=== PATIENT | male | born 2000 | race Hispanic/Latino ===

== ENCOUNTER 2024-09-09 11:24 | Emergency (ER) | payer OTHER ==
--- NOTE | 2024-09-09 12:43 | RAD REPORT ---
Procedure: Chest Single View HISTORY: Cough COMPARISON: none FINDINGS: The lungs appear clear of acute infiltrate. No significant pleural effusion noted. The heart is normal size. IMPRESSION: No acute abnormality is displayed.
--- NOTE | 2024-09-09 13:23 | ER ---
Nurse's Notes [facility] Name: William Samaniego Jr Age: 24 yrs Sex: Male : 2000 Arrival Date: 09/09/2024 Time: 11:24 Bed IW2 Private MD: Diagnosis: Contact with and (suspected) exposure to hazardous, chiefly nonmedicinal, chemicals Presentation: 09/09 11:39 Chief complaint: Patient states: Exposed to MMA at 0850 this AM. Eyes burning, SOB, ll1 dizzy, STAUFFER since. Coronavirus screen: Client denies travel out of the [place] in the last 14 days. At this time, the client does not indicate any symptoms associated with coronavirus-19. Ebola Screen: Patient denies travel to an Ebola-affected area in the 21 days before illness onset. Initial Sepsis Screen: Does the patient meet any 2 criteria? No. Patient's initial sepsis screen is negative. Does the patient have a suspected source of infection? No. Patient's initial sepsis screen is negative. Risk Assessment: Do you want to hurt yourself or someone else? Patient reports no desire to harm self or others. 11:39 Method Of Arrival: Ambulatory 1 11:39 Acuity: DEANDRE 3 ll1 11:50 Onset of symptoms was September 09, 2024. 1 Triage Assessment: 11:51 General: Appears in no apparent distress. Behavior is calm, cooperative, appropriate ll1 for age, Reports fatigue for. EENT: Reports eyes burning. Neuro: Reports dizziness, headache. Respiratory: Reports shortness of breath Onset: The symptoms/episode began/occurred today, the patient has mild shortness of breath. Historical: - Allergies: 11:49 No Known Allergies; ll1 - Home Meds: 11:49 None [Active]; ll1 - PMHx: 11:49 None; ll1 - PSHx: 11:49 R hand surgery; ll1 - Immunization history:: Adult Immunizations up to date. - Infectious Disease History:: Denies. - Social history:: Smoking status: Patient denies any tobacco usage or history of. - Family history:: not pertinent. Screenin:33 [facility] ED Fall Risk Assessment (Adult) History of falling in the last 3 months, ss including since admission No falls in past 3 months (0 pts) Confusion or Disorientation No (0 pts) Intoxicated or Sedated No (0 pts) Impaired Gait No (0 pts) Mobility Assist Device Used No (0 pt) Altered Elimination No (0 pt) Score/Fall Risk Level 0 - 2 = Low Risk Oriented to surroundings. Abuse screen: Denies threats or abuse. Denies injuries from another. Nutritional screening: No deficits noted. Tuberculosis screening: Never had TB. Assessment: 13:33 General: Appears in no apparent distress. comfortable, Behavior is calm, cooperative. ss Cardiovascular: Chest pain is denied. Respiratory: Airway is patent Respiratory effort is even, unlabored, Respiratory pattern is regular, symmetrical, Denies cough, shortness of breath. GI: Patient currently denies abdominal pain, diarrhea, nausea, vomiting. : No signs and/or symptoms were reported regarding the genitourinary system. EENT: Nares are clear. Derm: Skin is intact, is healthy with good turgor, Skin is pink, warm \T\ dry. normal. Vital Signs: 11:50 BP 164 / 105; Pulse 70; Resp 16; Temp 98.7; Pulse Ox 99% ; Pain 6/10; ll1 11:50 Pain Scale: Adult ll1 ED Course: 11:27 Patient arrived in ED. im 11:29 Buzz Quinn MD is Attending Physician. rt 11:39 Arm band placed on. ll1 11:40 Triage completed. ll1 12:41 Chest Single View XRAY In Process Unspecified. EDMS 13:33 Chela Jiménez RN is Primary Nurse. ss 13:33 Patient has correct armband on for positive identification. Bed in low position. ss 13:33 No provider procedures requiring assistance completed. Patient did not have IV access ss during this emergency room visit. Administered Medications: No medications were administered Medication: 13:33 VIS not applicable for this client. ss Outcome: 13:22 Discharge ordered by MD. rt 13:33 Discharged to home ambulatory, with family, ss 13:33 Condition: good 13:33 Discharge instructions given to patient, family, Instructed on discharge instructions, follow up and referral plans. Demonstrated understanding of instructions, follow-up care, 13:35 Patient left the ED. ss Signatures: Dispatcher [employer] [facility] Chela Jiménez RN RN ss Lewis, Lynsay, RN RN ll1 [place], Buzz, Elina Viveros MD Corrections: (The following items were deleted from the chart) 11:49 PSHx: None; ll1 ll1 1151 11:39 Chief complaint: Patient states: Exposed to MMA at 0850 this AM ll1 ll1
--- NOTE | 2024-09-09 13:23 | EDPHYS ---
Physician Documentation [facility] Name: William Samaniego Jr Age: 24 yrs Sex: Male : 2000 Arrival Date: 09/09/2024 Time: 11:24 Bed IW2 Private MD: ED Physician Buzz Quinn HPI: 09/09 13:24 This 24 yrs old Male presents to ER via Ambulatory with complaints of Chemical rt Exposure, Shortness Of Breath, Nose Problem - Burning sensation, Sore Throat. 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 Reports of burning to his nose, throat, headache. No acute complaints at this time, symptoms are moderate in severity, no other aggravating or alleviating factors.. Historical: - Allergies: 11:49 No Known Allergies; ll1 - Home Meds: 11:49 None [Active]; ll1 - PMHx: 11:49 None; ll1 - PSHx: 11:49 R hand surgery; ll1 - Immunization history:: Adult Immunizations up to date. - Infectious Disease History:: Denies. - Social history:: Smoking status: Patient denies any tobacco usage or history of. - Family history:: not pertinent. ROS: 13:24 Constitutional: Negative for fever, chills, and weight loss, Cardiovascular: Negative rt for chest pain, palpitations, and edema, MS/Extremity: Negative for injury and deformity, Skin: Negative for injury, rash, and discoloration, Neuro: Negative for headache, weakness, numbness, tingling, and seizure, 13:24 ENT: Positive for Burning sensation to nose, throat, 13:24 Respiratory: Positive for cough, Exam: 13:24 Constitutional: This is a well developed, well nourished patient who is awake, alert, rt and in no acute distress. Cardiovascular: Regular rate and rhythm with a normal S1 and S2. No gallops, murmurs, or rubs. Normal PMI, no JVD. No pulse deficits. Respiratory: Lungs have equal breath sounds bilaterally, clear to auscultation and percussion. No rales, rhonchi or wheezes noted. No increased work of breathing, no retractions or nasal flaring. Skin: Warm, dry with normal turgor. Normal color with no rashes, no lesions, and no evidence of cellulitis. MS/ Extremity: Pulses equal, no cyanosis. Neurovascular intact. Full, normal range of motion. Neuro: Awake and alert, GCS 15, oriented to person, place, time, and situation. Cranial nerves II-XII grossly intact. Motor strength 5/5 in all extremities. Sensory grossly intact. Cerebellar exam normal. Normal gait. 13:24 Eyes: No conjunctival injection. 13:24 ENT: No oropharyngeal erythema, swelling. Vital Signs: 11:50 BP 164 / 105; Pulse 70; Resp 16; Temp 98.7; Pulse Ox 99% ; Pain 6/10; ll1 11:50 Pain Scale: Adult ll1 MDM: 11:48 Medical Screening Exam initiated rt 13:24 Differential diagnosis: Inhalation injury. Data reviewed: vital signs, nurses notes, rt radiologic studies. Independent interpretation of the following test(s) in the Emergency Department X-Ray: My interpretation is No consolidation seen on interpretation of x-ray images. Test considered but Not performed: Labs: Stable vital signs, labs not indicated. Counseling: I had a detailed discussion with the patient and/or guardian regarding the historical points, exam findings, and any diagnostic results supporting the discharge/admit diagnosis, radiology results. 09/09 11:54 Order name: Chest Single View XRAY; Complete Time: 12:44 rt Administered Medications: No medications were administered Disposition Summary: 09/09/24 13:22 Discharge Ordered Notes: Location: Home rt Problem: new rt Symptoms: have improved rt Condition: Stable rt Diagnosis - Contact with and (suspected) exposure to hazardous, chiefly nonmedicinal, chemicals rt Followup: rt - With: Private Physician - When: 2 - 3 days - Reason: Discharge Instructions: - Discharge Summary Sheet ss - Chemical Inhalation Injury, Adult rt Forms: - Work release form ss - Medication Reconciliation Form rt - Antibiotic Education rt - Prescription Opioid Use rt - Patient Portal Instructions rt - Leadership Thank You Letter rt Signatures: Dispatcher [employer] Moses Strauss RN RN ll1 Buzz Quinn MD MD rt Corrections: (The following items were deleted from the chart) 11:50 11:49 PSHx: None; ll1 ll1
[2024-09-09 13:48] VITALS: BP 164/105; TEMP 98.7; O2SAT 99
== END 2024-09-09 13:35 | disposition home or self-care (01) ==
LOC: ER 11:24
DX: Z77.098 Contact with and (suspected) exposure to other hazardous, chiefly nonmedicinal, chemicals (principal)
CPT/HCPCS: 71045; 99282